=== PATIENT | male | born 1995 | race African-American/Black ===

== ENCOUNTER 2024-02-04 09:32 | Emergency (ER) | payer BC, SELFPAY ==
[2024-02-04] MEDS ORDERED: Ketorolac Tromethamine 30 MG (1 mL) VIAL ONE (11:24)
[2024-02-04] MEDS ORDERED: predniSONE 20 MG TAB ONE (11:24)
== END 2024-02-04 12:29 | disposition home or self-care (01) ==
LOC: ERS 09:32
DX: M25.461 Effusion, right knee (principal); M25.761 Osteophyte, right knee; F17.290 Nicotine dependence, other tobacco product, uncomplicated
CPT/HCPCS: 96372; J1885; J7512

== ENCOUNTER 2024-03-31 08:03 | Emergency (ER) | payer SELFPAY ==
[2024-03-31] MEDS ORDERED: Ketorolac Tromethamine 30 MG (1 mL) VIAL ONE (08:51)
== END 2024-03-31 09:19 | disposition home or self-care (01) ==
LOC: ERS 08:03
DX: M25.561 Pain in right knee (principal); F17.290 Nicotine dependence, other tobacco product, uncomplicated
CPT/HCPCS: 96372; 99282; J1885